=== PATIENT | female | born 1990 | race African-American/Black ===

== ENCOUNTER 2016-11-12 02:16 | Emergency (ER) | payer OTHER ==
[~2016-11-12] VITALS: Ht 167.6 cm; Wt 61.2 kg
[2016-11-12 03:00] VITALS: BP 137/99
== END 2016-11-12 03:34 | disposition home or self-care (01) ==
LOC: ER 02:19
DX: S16.1XXA Strain of muscle, fascia and tendon at neck level, initial encounter (principal); T48.1X1A Poisoning by skeletal muscle relaxants [neuromuscular blocking agents], accidental (unintentional), initial encounter; X58.XXXA Exposure to other specified factors, initial encounter; Y92.89 Other specified places as the place of occurrence of the external cause; Y93.89 Activity, other specified; Y99.8 Other external cause status
CPT/HCPCS: A4606; Z7502; Z7610